=== PATIENT | male | born 1970 | race Caucasian/White ===

== ENCOUNTER 2021-12-26 07:42 | Inpatient (IN) ==
[2021-12-26 08:51] LABS: Basophils % 0.3 %; Eosinophils # 0.1 K/mcL (0.0-0.6); Eosinophils % 0.6 %; Hematocrit 44.9 % (37.5-50.1); Hemoglobin 15.3 g/dL (12.9-16.9); Immature Granulocytes % 0.4 % (0-4); Lymphocytes # 1.6 K/mcL (0.6-4.6); Mean Corpuscular HGB Conc 34.1 g/dL (31.6-35.5); Mean Corpuscular Hemoglobin 32.1 pg (28.0-33.3); Mean Corpuscular Volume 94.1 fL (83.0-100.0); Mean Platelet Volume 8.9 fL (9.4-12.4); Monocytes # 0.6 K/mcL (0.0-1.3); Monocytes % 5.1 %; Platelet Count 266 K/mcL (140-400); Red Blood Count 4.77 M/mcL (4.19-5.50); Red Cell Distribution Width 12.3 % (11.5-14.5); Segmented Neutrophils % 80.6 %; White Blood Count 12.4 K/mcL (4.3-11.1)
[2021-12-26 09:11] LABS: BUN/Creatinine Ratio 16 (6-26); Blood Urea Nitrogen 14 mg/dL (6-20); Calcium 8.9 mg/dL (8.6-10.3); Carbon Dioxide 26 mEq/L (23-29); Chloride 102 mEq/L (98-107); Glucose 117 mg/dL (70-105); Osmolality,Calculated 286 (280-300); Potassium 3.7 mEq/L (3.5-5.1); Sodium 137 mEq/L (136-145); Troponin I 0.03 ng/mL (< 0.04)
[2021-12-26] MEDS ORDERED: Ondansetron 4 MG/2 ML VIAL ONE (09:31)
[2021-12-26] MEDS ORDERED: Ondansetron 4 MG/2 ML VIAL IVP ONE (09:31)
[2021-12-26] MEDS ORDERED: 0.9 % Sodium Chloride 1,000 ML IVC ONE (09:31)
[2021-12-26] MEDS ORDERED: Iopamidol - 370 500 ML MLS IVP ONE (09:54)
[2021-12-26] MEDS ORDERED: *HR* FentaNYL (PF) 100 MCG/2 ML VIAL IVP ONE ×2 (09:59→10:33)
[2021-12-26] MEDS ORDERED: 0.9 % Sodium Chloride 500 ML IVC ONE (10:22)
[2021-12-26] MEDS ORDERED: DOBUTamine 1,000 MG/250 ML BAG ONE (11:10)
[2021-12-26] MEDS ORDERED: Heparin 1,000 UNITS/500 mL 500 ML ONE (11:12)
[2021-12-26] MEDS ORDERED: Papaverine 60 MG/2 ML VIAL IVP ONE (11:12)
[2021-12-26] MEDS ORDERED: Vancomycin 1,000 MG VIAL ONE (11:13)
[2021-12-26] MEDS ORDERED: *HR* Propofol 200 MG/20 ML VIAL IVP ONE (11:13)
[2021-12-26] MEDS ORDERED: *HR* Midazolam HCl 5 MG/5 ML VIAL IVP ONE ×2 (11:13→21:32)
[2021-12-26] MEDS ORDERED: *HR* FentaNYL (PF) 1,000 MCG/20 ML VIAL ONE (11:13)
[2021-12-26] MEDS ORDERED: CeFAZolin Syr 2,000MG/20 ML 2,000 MG/20 ML SYRINGE IVPB ONE (11:15)
[2021-12-26] MEDS ORDERED: Aspirin 81 MG TAB.CHEW PO STA (11:15)
[2021-12-26] MEDS ORDERED: niCARdipine 20 MG/200 ML MLS IVC ONE ×2 (11:15→11:17)
[2021-12-26] MEDS ORDERED: Chlorhexidine Rinse 15 ML MOUTHWASH MM STA (11:15)
[2021-12-26] MEDS ORDERED: *HR* Magnesium Sulfate 1 GM/2 ML VIAL ONE (11:16)
[2021-12-26] MEDS ORDERED: Tranexamic Acid 1,000 MG/10 ML VIAL ONE ×2 (11:19)
[2021-12-26] MEDS ORDERED: Lidocaine 2% Syringe 100 MG/5 ML IVP ONE (11:25)
[2021-12-26] MEDS ORDERED: Albumin Human 25% 25 GM/100 ML IV.SOLN IVPB ONE (11:25)
[2021-12-26] MEDS ORDERED: *HR* Heparin 10,000 UNIT/10 ML VIAL IR ONE (11:25)
[2021-12-26] MEDS ORDERED: Tranexamic Acid 1,000 MG/10 ML VIAL IR ONE (11:25)
[2021-12-26] MEDS ORDERED: Mannitol 25% vial 12.5 GM/50 ML VIAL IVPB ONE (11:25)
[2021-12-26] MEDS ORDERED: *HR* Phenylephrine 10 MG/ML VIAL IVC ONE (11:25)
[2021-12-26] MEDS ORDERED: Clindamycin 600 MG/50 ML IV.SOLN IVPB ONE (11:25)
[2021-12-26] MEDS ORDERED: *HR* Magnesium Sulfate 2 GM/50 ML PIGGYBACK IVPB ONE (11:25)
[2021-12-26] MEDS ORDERED: Heparin 1,000 UNITS/500 mL IV.SOLN IR ONE (11:25)
[2021-12-26] MEDS ORDERED: Sodium Bicarbonate 50 MEQ/50 ML VIAL IVC ONE (11:25)
[2021-12-26] MEDS ORDERED: Lidocaine 2% Syringe 100 MG/5 ML ONE (11:29)
[2021-12-26] MEDS ORDERED: Morphine Sulfate 2 MG/ML SYRINGE IVP ONE (11:33)
[2021-12-26] MEDS: niCARdipine 20 MG/200 ML MLS IVC SCH ×3 (11:43→22:18)
[2021-12-26] MEDS ORDERED: Norepinephrine 4 MG in 0.9 % Sodium Chloride 250 ML IVC PRN (12:00)
[2021-12-26] MEDS ORDERED: del Nido Cardioplegia Solution PF ONE ×2 (12:00)
[2021-12-26] MEDS ORDERED: Heparin 15,000 UNIT in 0.9 % Sodium Chloride 500 ML IR ONE (12:00)
[2021-12-26] MEDS ORDERED: Buckersberg's Blood Cardioplegia PF ONE (12:00)
[2021-12-26 12:28] LABS: ABG Base Excess -4 mEq/L (-2 to 3); ABG Chloride 105 mEq/L (98-107); ABG Glucose 145 mg/dL (60-95); ABG HCO3 24 mEq/L (21-27); ABG Ionized Calcium 1.12 mmol/L (1.15-1.35); ABG Oxygen Saturation 100 % (95-98); ABG PCO2 54 mmHg (35-45); ABG PH 7.25 pH Units (7.32-7.45); ABG PO2 200 mmHg (85-104); ABG TCO2 25 mEq/L (20-26)
[2021-12-26] MEDS ORDERED: Vancomycin 1,500 MG/265 ML IV.SOLN IVPB ONE (13:00)
[2021-12-26] MEDS ORDERED: *HR* Rocuronium Bromide 50 MG/5 ML VIAL ONE ×4 (13:24→18:18)
[2021-12-26 13:33] LABS: ABG Base Excess -3 mEq/L (-2 to 3); ABG Chloride 101 mEq/L (98-107); ABG Glucose 124 mg/dL (60-95); ABG HCO3 24 mEq/L (21-27); ABG Oxygen Saturation 99 % (95-98); ABG PCO2 48 mmHg (35-45); ABG PO2 140 mmHg (85-104); ABG TCO2 26 mEq/L (20-26)
[2021-12-26] MEDS ORDERED: HUM PROTHROMBIN CPLX IVPB ONE (13:37)
[2021-12-26] MEDS ORDERED: [UNRECOGNIZED DRUG - OTHER] IVPB ONE (13:37)
[2021-12-26] MEDS ORDERED: WATER FOR INJ IVPB ONE (13:37)
[2021-12-26] MEDS ORDERED: Naloxone 0.4 MG/ML INJ IVP PRN (13:44)
[2021-12-26] MEDS ORDERED: Insulin Regular, Human 100 UNIT/ML IV PRN (13:44)
[2021-12-26] MEDS ORDERED: Ondansetron 4 MG/2 ML VIAL IVP PRN (13:44)
[2021-12-26] MEDS ORDERED: *HR* OxyCODONE/APAP 5/325 TABLET PO PRN (13:44)
[2021-12-26] MEDS ORDERED: *HR* FentaNYL (PF) 100 MCG/2 ML VIAL IVP PRN (13:44)
[2021-12-26] MEDS ORDERED: Albuterol 2.5 MG/3 ML NEBULIZER IH PRN (13:44)
[2021-12-26] MEDS ORDERED: *HR* Dextrose 50 % in Water (Syg) 50 ML SYRINGE IVP PRN (13:44)
[2021-12-26] MEDS ORDERED: Potassium Chloride 40 MEQ/200 ML BAG IVPB PRN (13:44)
[2021-12-26 14:01] LABS: ABG Base Excess -4 mEq/L (-2 to 3); ABG Chloride 102 mEq/L (98-107); ABG Glucose 149 mg/dL (60-95); ABG HCO3 23 mEq/L (21-27); ABG Ionized Calcium 0.99 mmol/L (1.15-1.35); ABG Oxygen Saturation 100 % (95-98); ABG PCO2 49 mmHg (35-45); ABG PH 7.28 pH Units (7.32-7.45); ABG PO2 220 mmHg (85-104); ABG TCO2 25 mEq/L (20-26)
[2021-12-26 15:06] LABS: ABG Base Excess -3 mEq/L (-2 to 3); ABG Chloride 103 mEq/L (98-107); ABG Glucose 180 mg/dL (60-95); ABG HCO3 21 mEq/L (21-27); ABG Ionized Calcium 0.94 mmol/L (1.15-1.35); ABG Oxygen Saturation 100 % (95-98); ABG PCO2 35 mmHg (35-45); ABG PH 7.39 pH Units (7.32-7.45); ABG PO2 191 mmHg (85-104); ABG TCO2 22 mEq/L (20-26)
[2021-12-26] MEDS ORDERED: Dexmedetomidine HCl 400 MCG/100 ML MLS IVC ONE (15:12)
[2021-12-26 15:38] LABS: ABG Base Excess -5 mEq/L (-2 to 3); ABG Chloride 104 mEq/L (98-107); ABG Glucose 210 mg/dL (60-95); ABG HCO3 20 mEq/L (21-27); ABG Ionized Calcium 0.96 mmol/L (1.15-1.35); ABG Oxygen Saturation 100 % (95-98); ABG PCO2 35 mmHg (35-45); ABG PH 7.37 pH Units (7.32-7.45); ABG PO2 198 mmHg (85-104); ABG TCO2 21 mEq/L (20-26)
[2021-12-26] MEDS ORDERED: ceFAZolin 1,000 MG in 0.9 % Sodium Chloride 10 ML IVP ONE (15:51)
[2021-12-26] MEDS ORDERED: Protamine Sulfate 250 MG/25 ML VIAL IVP ONE (16:10)
[2021-12-26] MEDS ORDERED: Protamine Sulfate 50 MG/5 ML VIAL IVP ONE ×2 (16:10→17:45)
[2021-12-26] MEDS ORDERED: Calcium Gluconate 1,000 MG/10 ML VIAL ONE (16:10)
[2021-12-26 16:17] LABS: ABG Base Excess -4 mEq/L (-2 to 3); ABG Chloride 104 mEq/L (98-107); ABG Glucose 220 mg/dL (60-95); ABG HCO3 20 mEq/L (21-27); ABG Ionized Calcium 0.91 mmol/L (1.15-1.35); ABG Oxygen Saturation 99 % (95-98); ABG PCO2 31 mmHg (35-45); ABG PH 7.42 pH Units (7.32-7.45); ABG PO2 121 mmHg (85-104); ABG TCO2 21 mEq/L (20-26)
[2021-12-26] MEDS ORDERED: Furosemide 40 MG/4 ML VIAL ONE (16:27)
[2021-12-26] MEDS ORDERED: *HR* Amiodarone 150 MG/3 ML VIAL IVPB ONE (16:46)
[2021-12-26] MEDS: Ipratropium/Albuterol Neb 3 ML IH SCH ×2 (16:52→19:41)
[2021-12-26 17:01] LABS: ABG Base Excess -6 mEq/L (-2 to 3); ABG Chloride 101 mEq/L (98-107); ABG Glucose 200 mg/dL (60-95); ABG HCO3 20 mEq/L (21-27); ABG Ionized Calcium 0.81 mmol/L (1.15-1.35); ABG Oxygen Saturation 100 % (95-98); ABG PCO2 40 mmHg (35-45); ABG PO2 291 mmHg (85-104); ABG TCO2 21 mEq/L (20-26)
[2021-12-26] MEDS ORDERED: Sodium Bicarbonate 50 MEQ/50 ML VIAL ONE (17:48)
[2021-12-26 17:50] LABS: ABG Base Excess -7 mEq/L (-2 to 3); ABG Chloride 103 mEq/L (98-107); ABG Glucose 249 mg/dL (60-95); ABG HCO3 21 mEq/L (21-27); ABG Ionized Calcium 0.75 mmol/L (1.15-1.35); ABG Oxygen Saturation 95 % (95-98); ABG PCO2 55 mmHg (35-45); ABG PH 7.19 pH Units (7.32-7.45); ABG PO2 91 mmHg (85-104); ABG TCO2 23 mEq/L (20-26)
[2021-12-26 18:11] LABS: ABG Base Excess -2 mEq/L (-2 to 3); ABG Chloride 102 mEq/L (98-107); ABG Glucose 214 mg/dL (60-95); ABG HCO3 25 mEq/L (21-27); ABG Ionized Calcium 0.76 mmol/L (1.15-1.35); ABG Oxygen Saturation 97 % (95-98); ABG PCO2 50 mmHg (35-45); ABG PO2 97 mmHg (85-104); ABG TCO2 26 mEq/L (20-26)
[2021-12-26] MEDS ORDERED: Albumin Human 5% 0 GM/0 ML IV.SOLN ONE (18:27)
[2021-12-26] MEDS ORDERED: [UNRECOGNIZED DRUG - OTHER] IVP ONE (18:30)
[2021-12-26 19:50] LABS: ABG Base Excess 3 mEq/L (-2 to 3); ABG HCO3 31 mEq/L (21-27); ABG Oxygen Saturation 91 % (95-98); ABG PCO2 68 mmHg (35-45); ABG PH 7.27 pH Units (7.32-7.45); ABG PO2 73 mmHg (85-104); ABG TCO2 34 mEq/L (20-26); Blood Gas Modality AF; Blood Gas VT 500 cc
[2021-12-26] MEDS: DOBUTamine 1,000 MG/250 ML BAG IVC SCH (19:59)
[2021-12-26 20:01] LABS: Platelet Count 114 K/mcL (140-400)
[2021-12-26 20:03] LABS: Basophils # 0.1 K/mcL (0.0-0.2); Basophils % 0.3 %; Hematocrit 36.8 % (37.5-50.1); Hemoglobin 12.1 g/dL (12.9-16.9); Immature Granulocytes % 1.5 % (0-4); Lymphocytes # 1.5 K/mcL (0.6-4.6); Lymphocytes % 5.5 %; Mean Corpuscular HGB Conc 32.9 g/dL (31.6-35.5); Mean Corpuscular Hemoglobin 31.3 pg (28.0-33.3); Mean Corpuscular Volume 95.3 fL (83.0-100.0); Mean Platelet Volume 8.5 fL (9.4-12.4); Monocytes # 1.1 K/mcL (0.0-1.3); Neutrophils # 24.4 K/mcL (1.6-8.9); Red Blood Count 3.86 M/mcL (4.19-5.50); Red Cell Distribution Width 13.4 % (11.5-14.5); Segmented Neutrophils % 88.7 %; White Blood Count 27.5 K/mcL (4.3-11.1)
[2021-12-26 20:08] LABS: INR 0.7
[2021-12-26 20:11] LABS: Activated Partial Thrombo Time 37.7 Seconds (26.0-36.0)
[2021-12-26] MEDS: CeFAZolin 2 GM/120 ML BAG IVPB SCH (20:21)
[2021-12-26] MEDS: EPINEPHrine 5 MG in D5% in Water 250 ML IVC SCH (20:22)
[2021-12-26 20:23] LABS: Platelet Estimate Slight Decrease (Normal)
[2021-12-26] MEDS: Norepinephrine 4 MG/254 ML IV.SOLN IVC SCH ×3 (20:23→22:48)
[2021-12-26] MEDS ORDERED: *HR* Midazolam HCl 2 MG/2 ML VIAL IVP ONE (20:24)
[2021-12-26 20:27] LABS: BUN/Creatinine Ratio 20 (6-26); Blood Urea Nitrogen 18 mg/dL (6-20); Calcium 7.6 mg/dL (8.6-10.3); Carbon Dioxide 29 mEq/L (23-29); Chloride 104 mEq/L (98-107); Chol/HDL Ratio 3.7 (0-4.9); Cholesterol 127 mg/dL (< 200); Estimated Average Glucose 117 mg/dl; Glucose 202 mg/dL (70-105); HDL Cholesterol 34 mg/dL (40-59); Hemoglobin A1C 5.7 %; LDL Cholesterol,Calculated 69 mg/dL (< 100); Magnesium 2.7 mg/dL (1.6-2.6); Osmolality,Calculated 310 (280-300); Potassium 3.7 mEq/L (3.5-5.1); Sodium 146 mEq/L (136-145); Triglycerides 122 mg/dL (< 150)
[2021-12-26] MEDS: FentaNYL (PF) 1,000 MCG/100 ML IV.SOLN IVC SCH (21:12)
[2021-12-26] MEDS: Calcium Gluconate 1gm/50mL 1 GM/50 ML BAG IVPB PRN (21:19)
[2021-12-26 21:20] LABS: ABG Base Excess -1 mEq/L (-2 to 3); ABG HCO3 28 mEq/L (21-27); ABG Oxygen Saturation 88 % (95-98); ABG PCO2 68 mmHg (35-45); ABG PH 7.22 pH Units (7.32-7.45); ABG PO2 67 mmHg (85-104); ABG TCO2 30 mEq/L (20-26); Blood Gas VT 500 cc
[2021-12-26] MEDS: Pantoprazole 40 MG VIAL IVP SCH (21:38)
[2021-12-26] MEDS: Chlorhexidine Rinse 15 ML MOUTHWASH MM SCH (21:38)
[2021-12-26] MEDS ORDERED: Norepinephrine 32 MG/250 ML IV.SOLN IVC SCH (22:15)
[2021-12-26] MEDS ORDERED: Norepinephrine 4 MG/254 ML IV.SOLN IVC ONE (22:48)
[2021-12-26] MEDS: Norepinephrine 32 MG/250 ML IV.SOLN IVC SCH (23:40)
[2021-12-27] MEDS ORDERED: Norepinephrine 4 MG/254 ML IV.SOLN IVC ONE (00:03)
[2021-12-27] MEDS: Ipratropium/Albuterol Neb 3 ML IH SCH ×7 (00:05→23:20)
[2021-12-27] MEDS: Norepinephrine 4 MG/254 ML IV.SOLN IVC SCH (00:20)
[2021-12-27 00:24] LABS: ABG Base Excess 1 mEq/L (-2 to 3); ABG HCO3 27 mEq/L (21-27); ABG Oxygen Saturation 90 % (95-98); ABG PCO2 54 mmHg (35-45); ABG PH 7.32 pH Units (7.32-7.45); ABG PO2 64 mmHg (85-104); ABG TCO2 29 mEq/L (20-26); Blood Gas Modality AF; Blood Gas VT 550 cc
[2021-12-27] MEDS: Albumin Human 5% 12.5 GM/250 ML IV.SOLN IVPB PRN ×2 (00:40→00:41)
[2021-12-27] MEDS ORDERED: *HR* Midazolam HCl 2 MG/2 ML VIAL IVP PRN (03:10)
[2021-12-27] MEDS ORDERED: Dexmedetomidine HCl 400 MCG/100 ML MLS IVC ONE (03:10)
[2021-12-27] MEDS: FentaNYL (PF) 1,000 MCG/100 ML IV.SOLN IVC SCH ×5 (03:18→23:36)
[2021-12-27] MEDS: Dexmedetomidine HCl 400 MCG/100 ML MLS IVC SCH ×4 (03:30→19:14)
[2021-12-27 03:38] LABS: Activated Partial Thrombo Time 28.9 Seconds (26.0-36.0)
[2021-12-27 04:03] LABS: INR 1.1; Prothrombin Time 12.1 Seconds (9.4-12.1)
[2021-12-27 04:12] LABS: BUN/Creatinine Ratio 23 (6-26); Blood Urea Nitrogen 21 mg/dL (6-20); Calcium 7.8 mg/dL (8.6-10.3); Carbon Dioxide 30 mEq/L (23-29); Chloride 107 mEq/L (98-107); Glucose 136 mg/dL (70-105); Magnesium 2.4 mg/dL (1.6-2.6); Osmolality,Calculated 305 (280-300); Potassium 3.8 mEq/L (3.5-5.1); Sodium 145 mEq/L (136-145)
[2021-12-27 04:12] LABS: ABG Base Excess 7 mEq/L (-2 to 3); ABG HCO3 32 mEq/L (21-27); ABG Oxygen Saturation 94 % (95-98); ABG PCO2 47 mmHg (35-45); ABG PH 7.44 pH Units (7.32-7.45); ABG PO2 69 mmHg (85-104); ABG TCO2 33 mEq/L (20-26); Blood Gas Modality AF; Blood Gas VT 550 cc
[2021-12-27 04:16] LABS: Amphetamine Screen,Urine Negative ng/mL (Cutoff=1000); Barbiturate Screen,Urine Negative ng/mL (Cutoff=200); Benzodiazepines Screen,Urine Positive ng/mL (Cutoff=200); Cannabinoid Screen,Urine Positive ng/mL (Cutoff = 50); Cocaine Screen,Urine Negative ng/mL (Cutoff= 300); Opiate Screen,Urine Positive ng/mL (Cutoff=300); Phencyclidine Screen,Urine Negative ng/mL (Cutoff=25)
[2021-12-27] MEDS: Calcium Gluconate 1gm/50mL 1 GM/50 ML BAG IVPB PRN ×2 (04:35→20:30)
[2021-12-27] MEDS: CeFAZolin 2 GM/120 ML BAG IVPB SCH ×3 (04:52→20:30)
[2021-12-27 05:02] LABS: Basophils % 0.1 %; Hemoglobin 9.1 g/dL (12.9-16.9); Immature Granulocytes % 0.5 % (0-4); Lymphocytes # 0.9 K/mcL (0.6-4.6); Lymphocytes % 5.5 %; Mean Corpuscular HGB Conc 33.7 g/dL (31.6-35.5); Mean Corpuscular Hemoglobin 31.3 pg (28.0-33.3); Mean Corpuscular Volume 92.8 fL (83.0-100.0); Mean Platelet Volume 9.5 fL (9.4-12.4); Monocytes # 1.3 K/mcL (0.0-1.3); Monocytes % 7.4 %; Neutrophils # 14.7 K/mcL (1.6-8.9); Platelet Count 122 K/mcL (140-400); Red Blood Count 2.91 M/mcL (4.19-5.50); Red Cell Distribution Width 13.9 % (11.5-14.5); Segmented Neutrophils % 86.5 %; White Blood Count 16.9 K/mcL (4.3-11.1)
[2021-12-27] MEDS: niCARdipine 20 MG/200 ML MLS IVC SCH ×6 (05:18→20:30)
[2021-12-27] MEDS ORDERED: *HR* Enoxaparin 30 MG/0.3 ML SYRINGE SQ SCH (06:00)
[2021-12-27 07:52] LABS: ABG Base Excess 5 mEq/L (-2 to 3); ABG HCO3 30 mEq/L (21-27); ABG Oxygen Saturation 95 % (95-98); ABG PCO2 45 mmHg (35-45); ABG PH 7.43 pH Units (7.32-7.45); ABG PO2 73 mmHg (85-104); ABG TCO2 31 mEq/L (20-26); Blood Gas Modality ASSIST CONTROL; Blood Gas VT 480 cc
[2021-12-27] MEDS: Pantoprazole 40 MG VIAL IVP SCH (07:56)
[2021-12-27] MEDS: Chlorhexidine Rinse 15 ML MOUTHWASH MM SCH ×2 (07:58→20:30)
[2021-12-27] MEDS: Aspirin Enteric Coated 81 MG Tablet PO SCH (07:59)
[2021-12-27] MEDS ORDERED: acetaZOLAMIDE 500 MG in Water for inj. (sterile) 5 ML IVP ONE ×2 (08:00→08:15)
[2021-12-27] MEDS: Furosemide 40 MG/4 ML VIAL IVP SCH ×3 (08:43→23:36)
[2021-12-27] MEDS: Potassium Chloride Elixir 20 MEQ/15 ML UDC GTUBE SCH ×3 (08:43→23:35)
[2021-12-27 09:30] LABS: ABG Base Excess 8 mEq/L (-2 to 3); ABG HCO3 33 mEq/L (21-27); ABG Oxygen Saturation 94 % (95-98); ABG PCO2 50 mmHg (35-45); ABG PH 7.42 pH Units (7.32-7.45); ABG PO2 70 mmHg (85-104); ABG TCO2 34 mEq/L (20-26); Blood Gas Modality ASSIST CONTROL; Blood Gas VT 550 cc
[2021-12-27] MEDS: Docusate Oral Soln 100 MG/10 ML UDC GTUBE SCH ×2 (10:20→20:30)
[2021-12-27] MEDS: EPINEPHrine 5 MG in D5% in Water 250 ML IVC SCH (11:38)
[2021-12-27] MEDS ORDERED: Protamine Sulfate 50 MG/5 ML VIAL IVP ONE (11:49)
[2021-12-27] MEDS ORDERED: Calcium Gluconate 1,000 MG/10 ML VIAL ONE (11:49)
[2021-12-27] MEDS ORDERED: Protamine Sulfate 250 MG/25 ML VIAL IVP ONE (11:49)
[2021-12-27] MEDS ORDERED: Albumin Human 5% 12.5 GM/250 ML IV.SOLN ONE (12:02)
[2021-12-27] MEDS: Norepinephrine 32 MG/250 ML IV.SOLN IVC SCH (13:26)
[2021-12-27] MEDS: DOBUTamine 1,000 MG/250 ML BAG IVC SCH (13:47)
[2021-12-27] MEDS ORDERED: Artificial Tears SOLN 15 ML BOTTLE BOTH EYES ONE (16:14)
[2021-12-27] MEDS ORDERED: Artificial Tears SOLN 15 ML BOTTLE BOTH EYES PRN (16:14)
[2021-12-27] MEDS ORDERED: Aspirin 81 MG TAB.CHEW PO ONE (18:00)
[2021-12-27 19:08] LABS: BUN/Creatinine Ratio 22 (6-26); Blood Urea Nitrogen 15 mg/dL (6-20); Calcium 7.6 mg/dL (8.6-10.3); Carbon Dioxide 34 mEq/L (23-29); Chloride 104 mEq/L (98-107); Glucose 140 mg/dL (70-105); Osmolality,Calculated 297 (280-300); Potassium 3.8 mEq/L (3.5-5.1); Sodium 142 mEq/L (136-145)
[2021-12-27] MEDS ORDERED: D5% in Water 1,000 ML IVC PRN (19:57)
[2021-12-27] MEDS ORDERED: Dextrose Gel 15 GM/37.5 ML TUBE PO PRN ×2 (19:57)
[2021-12-27] MEDS ORDERED: *HR* Dextrose 50 % in Water (Syg) 50 ML SYRINGE IVP PRN (19:57)
[2021-12-27] MEDS: Insulin LISPRO 300 UNITS/3 ML VIAL SUBQ SCH (20:05)
[2021-12-27] MEDS ORDERED: 0.9 % Sodium Chloride 500 ML ONE (23:54)
[2021-12-28] MEDS: Insulin LISPRO 300 UNITS/3 ML VIAL SUBQ SCH ×6 (00:04→20:05)
[2021-12-28] MEDS: Acetaminophen 325 MG TABLET PO PRN ×2 (00:04→20:05)
[2021-12-28] MEDS: Dexmedetomidine HCl 400 MCG/100 ML MLS IVC SCH ×7 (01:00→22:19)
[2021-12-28] MEDS: DOBUTamine 1,000 MG/250 ML BAG IVC SCH (02:04)
[2021-12-28] MEDS: Ipratropium/Albuterol Neb 3 ML IH SCH ×5 (03:20→20:01)
[2021-12-28 03:56] LABS: ABG Base Excess 7 mEq/L (-2 to 3); ABG HCO3 32 mEq/L (21-27); ABG Oxygen Saturation 93 % (95-98); ABG PCO2 43 mmHg (35-45); ABG PH 7.48 pH Units (7.32-7.45); ABG PO2 62 mmHg (85-104); ABG TCO2 33 mEq/L (20-26); Blood Gas Modality AF; Blood Gas VT 550 cc
[2021-12-28 04:00] LABS: Basophils % 0.2 %; Eosinophils # 0.2 K/mcL (0.0-0.6); Eosinophils % 0.8 %; Hematocrit 27.3 % (37.5-50.1); Immature Granulocytes % 0.6 % (0-4); Lymphocytes # 2.3 K/mcL (0.6-4.6); Lymphocytes % 11.4 %; Mean Corpuscular Hemoglobin 31.6 pg (28.0-33.3); Mean Corpuscular Volume 95.8 fL (83.0-100.0); Mean Platelet Volume 10.1 fL (9.4-12.4); Monocytes # 1.2 K/mcL (0.0-1.3); Platelet Count 113 K/mcL (140-400); Red Blood Count 2.85 M/mcL (4.19-5.50); White Blood Count 19.8 K/mcL (4.3-11.1)
[2021-12-28 04:22] LABS: BUN/Creatinine Ratio 21 (6-26); Blood Urea Nitrogen 15 mg/dL (6-20); Calcium 7.9 mg/dL (8.6-10.3); Carbon Dioxide 34 mEq/L (23-29); Chloride 103 mEq/L (98-107); Glucose 147 mg/dL (70-105); Magnesium 2.2 mg/dL (1.6-2.6); Osmolality,Calculated 294 (280-300); Potassium 4.2 mEq/L (3.5-5.1); Sodium 140 mEq/L (136-145)
[2021-12-28] MEDS: CeFAZolin 2 GM/120 ML BAG IVPB SCH ×2 (04:24→12:49)
[2021-12-28] MEDS: niCARdipine 20 MG/200 ML MLS IVC SCH ×3 (04:41→20:05)
[2021-12-28] MEDS: FentaNYL (PF) 1,000 MCG/100 ML IV.SOLN IVC SCH ×4 (05:23→21:30)
[2021-12-28] MEDS: *HR* Enoxaparin 40 MG/0.4 ML SYRINGE SQ SCH (05:24)
[2021-12-28] MEDS: Pantoprazole 40 MG VIAL IVP SCH (07:48)
[2021-12-28] MEDS: Docusate Oral Soln 100 MG/10 ML UDC GTUBE SCH ×2 (07:48→20:04)
[2021-12-28] MEDS: Aspirin Enteric Coated 81 MG Tablet PO SCH (07:48)
[2021-12-28] MEDS: Chlorhexidine Rinse 15 ML MOUTHWASH MM SCH ×2 (07:48→20:04)
[2021-12-28] MEDS ORDERED: Bumetanide 1 MG/4 ML VIAL IVP ONE (09:41)
[2021-12-28] MEDS: Piperacillin/Tazobactam 3.375 GM in 0.9 % Sodium Chloride Mini Bag 100 ML IVPB SCH ×2 (09:57→17:59)
[2021-12-28] MEDS ORDERED: Vancomycin 1,750 MG in 0.9 % Sodium Chloride 250 ML IVPB SCH (10:00)
[2021-12-28 10:10] LABS: Bacteria,Urine Few per hpf (None-Few); Bilirubin,Urine Negative (Negative); Blood,Urine Small (Negative); Clarity,Urine Clear (Clear); Color,Urine Light-Yellow (Yellow); Glucose,Urine (UA) Normal (Normal); Ketones,Urine Negative (Negative); Leukocyte Esterase,Urine Negative (Negative); Mucus,Urine Few per lpf (None-Few); Nitrite,Urine Negative (Negative); PH,Urine 7.5 pH Units (5.0-8.0); Protein,Urine 50 mg/dL (Neg-Trace); Specific Gravity,Urine 1.024 (1.010-1.025); Urobilinogen,Urine Normal (Normal)
[2021-12-28] MEDS: Norepinephrine 32 MG/250 ML IV.SOLN IVC SCH (13:26)
[2021-12-28] MEDS: Vancomycin 1,750 MG/517.5 ML IV.SOLN IVPB SCH (13:31)
[2021-12-28] MEDS: EPINEPHrine 5 MG in D5% in Water 250 ML IVC SCH (20:06)
[2021-12-29] MEDS: Piperacillin/Tazobactam 3.375 GM in 0.9 % Sodium Chloride Mini Bag 100 ML IVPB SCH ×4 (00:45→23:36)
[2021-12-29] MEDS: Insulin LISPRO 300 UNITS/3 ML VIAL SUBQ SCH ×6 (00:45→19:56)
[2021-12-29] MEDS: Vancomycin 1,750 MG/517.5 ML IV.SOLN IVPB SCH ×2 (00:47→12:37)
[2021-12-29] MEDS: Dexmedetomidine HCl 400 MCG/100 ML MLS IVC SCH ×4 (01:54→12:23)
[2021-12-29] MEDS: FentaNYL (PF) 1,000 MCG/100 ML IV.SOLN IVC SCH ×2 (02:34→07:37)
[2021-12-29] MEDS: Ipratropium/Albuterol Neb 3 ML IH SCH ×7 (03:31→23:01)
[2021-12-29 04:03] LABS: ABG Base Excess 5 mEq/L (-2 to 3); ABG HCO3 30 mEq/L (21-27); ABG Oxygen Saturation 94 % (95-98); ABG PCO2 48 mmHg (35-45); ABG PH 7.41 pH Units (7.32-7.45); ABG PO2 69 mmHg (85-104); ABG TCO2 32 mEq/L (20-26); Blood Gas Modality AF; Blood Gas VT 550 cc
[2021-12-29 04:13] LABS: Basophils # 0.1 K/mcL (0.0-0.2); Basophils % 0.3 %; Eosinophils % 0.1 %; Hematocrit 25.3 % (37.5-50.1); Hemoglobin 8.4 g/dL (12.9-16.9); Immature Granulocytes % 1.1 % (0-4); Lymphocytes # 2.3 K/mcL (0.6-4.6); Lymphocytes % 13.1 %; Mean Corpuscular HGB Conc 33.2 g/dL (31.6-35.5); Mean Corpuscular Hemoglobin 31.9 pg (28.0-33.3); Mean Corpuscular Volume 96.2 fL (83.0-100.0); Mean Platelet Volume 9.6 fL (9.4-12.4); Monocytes # 0.8 K/mcL (0.0-1.3); Monocytes % 4.7 %; Neutrophils # 14.2 K/mcL (1.6-8.9); Platelet Count 106 K/mcL (140-400); Red Blood Count 2.63 M/mcL (4.19-5.50); Red Cell Distribution Width 13.7 % (11.5-14.5); Segmented Neutrophils % 80.7 %; White Blood Count 17.6 K/mcL (4.3-11.1)
[2021-12-29 04:27] LABS: BUN/Creatinine Ratio 24 (6-26); Blood Urea Nitrogen 14 mg/dL (6-20); Calcium 7.6 mg/dL (8.6-10.3); Carbon Dioxide 30 mEq/L (23-29); Chloride 102 mEq/L (98-107); Glucose 137 mg/dL (70-105); Magnesium 2.1 mg/dL (1.6-2.6); Osmolality,Calculated 283 (280-300); Potassium 3.8 mEq/L (3.5-5.1); Sodium 135 mEq/L (136-145)
[2021-12-29] MEDS: Acetaminophen 325 MG TABLET PO PRN ×2 (04:50→20:02)
[2021-12-29] MEDS: *HR* Enoxaparin 40 MG/0.4 ML SYRINGE SQ SCH (05:00)
[2021-12-29] MEDS: niCARdipine 20 MG/200 ML MLS IVC SCH ×6 (07:35→16:23)
[2021-12-29] MEDS: Pantoprazole 40 MG VIAL IVP SCH (07:36)
[2021-12-29] MEDS: DOBUTamine 1,000 MG/250 ML BAG IVC SCH (07:36)
[2021-12-29] MEDS: Docusate Oral Soln 100 MG/10 ML UDC GTUBE SCH ×2 (07:37→19:54)
[2021-12-29] MEDS: Chlorhexidine Rinse 15 ML MOUTHWASH MM SCH ×2 (07:37→20:03)
[2021-12-29] MEDS: Aspirin Enteric Coated 81 MG Tablet PO SCH (07:44)
[2021-12-29] MEDS: EPINEPHrine 5 MG in D5% in Water 250 ML IVC SCH (10:24)
[2021-12-29] MEDS ORDERED: *HR* OxyCODONE/APAP 5/325 TABLET PO ONE (21:09)
[2021-12-30] MEDS: Norepinephrine 32 MG/250 ML IV.SOLN IVC SCH ×2 (00:16→22:52)
[2021-12-30] MEDS: Insulin LISPRO 300 UNITS/3 ML VIAL SUBQ SCH ×6 (00:17→21:07)
[2021-12-30] MEDS: *HR* OxyCODONE/APAP 5/325 TABLET PO PRN ×5 (01:07→21:17)
[2021-12-30] MEDS: Morphine Sulfate 2 MG/ML SYRINGE IVP PRN ×2 (01:54→07:33)
[2021-12-30] MEDS ORDERED: Vancomycin 1,500 MG/265 ML IV.SOLN IVPB SCH (02:00)
[2021-12-30 03:25] LABS: Basophils % 0.1 %; Hematocrit 23.3 % (37.5-50.1); Hemoglobin 7.6 g/dL (12.9-16.9); Immature Granulocytes % 0.9 % (0-4); Lymphocytes % 6.4 %; Mean Corpuscular HGB Conc 32.6 g/dL (31.6-35.5); Mean Corpuscular Hemoglobin 31.5 pg (28.0-33.3); Mean Corpuscular Volume 96.7 fL (83.0-100.0); Mean Platelet Volume 9.8 fL (9.4-12.4); Monocytes # 1.1 K/mcL (0.0-1.3); Monocytes % 6.7 %; Neutrophils # 13.9 K/mcL (1.6-8.9); Nucleated Red Blood Cells 0.2 /100 WBC (0); Platelet Count 139 K/mcL (140-400); Red Blood Count 2.41 M/mcL (4.19-5.50); Red Cell Distribution Width 13.5 % (11.5-14.5); Segmented Neutrophils % 85.9 %; White Blood Count 16.2 K/mcL (4.3-11.1)
[2021-12-30] MEDS: Ipratropium/Albuterol Neb 3 ML IH SCH ×6 (03:50→23:25)
[2021-12-30 03:51] LABS: BUN/Creatinine Ratio 36 (6-26); Blood Urea Nitrogen 20 mg/dL (6-20); Calcium 7.5 mg/dL (8.6-10.3); Carbon Dioxide 29 mEq/L (23-29); Chloride 105 mEq/L (98-107); Glucose 118 mg/dL (70-105); Magnesium 2.1 mg/dL (1.6-2.6); Osmolality,Calculated 296 (280-300); Potassium 3.1 mEq/L (3.5-5.1); Sodium 141 mEq/L (136-145)
[2021-12-30] MEDS: Vancomycin 1,750 MG/517.5 ML IV.SOLN IVPB SCH (05:12)
[2021-12-30] MEDS: *HR* Enoxaparin 40 MG/0.4 ML SYRINGE SQ SCH (05:12)
[2021-12-30] MEDS: Chlorhexidine Rinse 15 ML MOUTHWASH MM SCH (07:33)
[2021-12-30] MEDS: Docusate Oral Soln 100 MG/10 ML UDC GTUBE SCH (07:33)
[2021-12-30] MEDS: Aspirin Enteric Coated 81 MG Tablet PO SCH (07:33)
[2021-12-30] MEDS: Pantoprazole 40 MG VIAL IVP SCH (07:33)
[2021-12-30] MEDS: Piperacillin/Tazobactam 3.375 GM in 0.9 % Sodium Chloride Mini Bag 100 ML IVPB SCH ×2 (07:34→15:42)
[2021-12-30] MEDS ORDERED: Dextrose Gel 15 GM/37.5 ML TUBE PO PRN ×2 (08:21)
[2021-12-30] MEDS ORDERED: *HR* Dextrose 50 % in Water (Syg) 50 ML SYRINGE IVP PRN (08:21)
[2021-12-30] MEDS ORDERED: D5% in Water 1,000 ML IVC PRN (08:21)
[2021-12-30] MEDS: Bumetanide 1 MG/4 ML VIAL IVP SCH ×2 (10:44→16:22)
[2021-12-30] MEDS: 3% Sodium Chloride Inhalation 4 ML VIAL.NEB IH SCH ×3 (11:28→19:54)
[2021-12-30] MEDS: amLODIPine 5 MG TABLET PO SCH (14:45)
[2021-12-30] MEDS: Finasteride 5 MG TABLET PO SCH (16:21)
[2021-12-30 19:34] LABS: Amphetamines NEGATIVE ng/mL (Cutoff 20); Barbiturates NEGATIVE ng/mL (Cutoff 50); Buprenorphine NEGATIVE ng/mL (Cutoff 1); Cocaine NEGATIVE ng/mL (Cutoff 20); Methadone NEGATIVE ng/mL (Cutoff 25); Methamphetamines NEGATIVE ng/mL (Cutoff 20); Opiates NEGATIVE ng/mL (Cutoff 20); Phencyclidine NEGATIVE ng/mL (Cutoff 10)
[2021-12-30] MEDS ORDERED: Melatonin 3 MG TABLET PO PRN (21:14)
[2021-12-30] MEDS: Docusate Oral Soln 100 MG/10 ML UDC PO SCH (21:19)
[2021-12-30] MEDS: Melatonin 3 MG TABLET PO PRN (21:37)
[2021-12-31] MEDS: Piperacillin/Tazobactam 3.375 GM in 0.9 % Sodium Chloride Mini Bag 100 ML IVPB SCH ×4 (00:33→23:44)
[2021-12-31] MEDS: 3% Sodium Chloride Inhalation 4 ML VIAL.NEB IH SCH ×4 (03:41→20:42)
[2021-12-31] MEDS: Ipratropium/Albuterol Neb 3 ML IH SCH ×6 (03:41→23:46)
[2021-12-31 04:53] LABS: Basophils % 0.1 %; Hematocrit 22.3 % (37.5-50.1); Hemoglobin 7.2 g/dL (12.9-16.9); Immature Granulocytes % 0.9 % (0-4); Lymphocytes # 1.1 K/mcL (0.6-4.6); Lymphocytes % 7.3 %; Mean Corpuscular HGB Conc 32.3 g/dL (31.6-35.5); Mean Corpuscular Volume 96.1 fL (83.0-100.0); Mean Platelet Volume 9.6 fL (9.4-12.4); Monocytes # 1.1 K/mcL (0.0-1.3); Monocytes % 6.9 %; Neutrophils # 13.2 K/mcL (1.6-8.9); Nucleated Red Blood Cells 0.4 /100 WBC (0); Platelet Count 162 K/mcL (140-400); Red Blood Count 2.32 M/mcL (4.19-5.50); Red Cell Distribution Width 13.5 % (11.5-14.5); Segmented Neutrophils % 84.8 %; White Blood Count 15.6 K/mcL (4.3-11.1)
[2021-12-31] MEDS: *HR* Enoxaparin 40 MG/0.4 ML SYRINGE SQ SCH (05:09)
[2021-12-31] MEDS: *HR* OxyCODONE/APAP 5/325 TABLET PO PRN ×3 (05:12→18:16)
[2021-12-31 05:20] LABS: BUN/Creatinine Ratio 50 (6-26); Blood Urea Nitrogen 26 mg/dL (6-20); Carbon Dioxide 30 mEq/L (23-29); Chloride 105 mEq/L (98-107); Glucose 107 mg/dL (70-105); Magnesium 2.2 mg/dL (1.6-2.6); Osmolality,Calculated 301 (280-300); Potassium 3.2 mEq/L (3.5-5.1); Sodium 143 mEq/L (136-145)
[2021-12-31] MEDS: Docusate Oral Soln 100 MG/10 ML UDC PO SCH ×2 (08:02→19:54)
[2021-12-31] MEDS: amLODIPine 5 MG TABLET PO SCH (08:03)
[2021-12-31] MEDS: Aspirin Enteric Coated 81 MG Tablet PO SCH (08:03)
[2021-12-31] MEDS: Bumetanide 1 MG/4 ML VIAL IVP SCH ×2 (08:03→15:39)
[2021-12-31] MEDS: Finasteride 5 MG TABLET PO SCH (08:03)
[2021-12-31] MEDS: Insulin LISPRO 300 UNITS/3 ML VIAL SUBQ SCH ×4 (09:54→19:36)
[2021-12-31 10:29] LABS: Benzodiazepines POSITIVE ng/mL (Cutoff 50)
[2021-12-31 15:55] LABS: VBG Ionized Calcium 1.06 mmol/L (1.15-1.35)
[2021-12-31 17:31] LABS: BUN/Creatinine Ratio 49 (6-26); Blood Urea Nitrogen 25 mg/dL (6-20); Carbon Dioxide 31 mEq/L (23-29); Chloride 104 mEq/L (98-107); Glucose 97 mg/dL (70-105); Magnesium 2.2 mg/dL (1.6-2.6); Osmolality,Calculated 296 (280-300); Potassium 3.4 mEq/L (3.5-5.1); Sodium 141 mEq/L (136-145)
[2021-12-31] MEDS ORDERED: 0.9 % Sodium Chloride 1,000 ML ONE (17:55)
[2021-12-31] MEDS: Melatonin 3 MG TABLET PO PRN (19:55)
[2021-12-31] MEDS: Morphine Sulfate 2 MG/ML SYRINGE IVP PRN (22:00)
[2022-01-01] MEDS: *HR* OxyCODONE/APAP 5/325 TABLET PO PRN ×5 (01:11→20:38)
[2022-01-01] MEDS: 3% Sodium Chloride Inhalation 4 ML VIAL.NEB IH SCH ×4 (04:39→20:05)
[2022-01-01] MEDS: Ipratropium/Albuterol Neb 3 ML IH SCH ×6 (04:39→22:40)
[2022-01-01 05:22] LABS: Basophils % 0.2 %; Eosinophils % 0.2 %; Hematocrit 22.5 % (37.5-50.1); Hemoglobin 7.2 g/dL (12.9-16.9); Immature Granulocytes % 1.5 % (0-4); Lymphocytes # 1.8 K/mcL (0.6-4.6); Lymphocytes % 11.7 %; Mean Platelet Volume 9.7 fL (9.4-12.4); Monocytes # 1.1 K/mcL (0.0-1.3); Monocytes % 6.7 %; Neutrophils # 12.5 K/mcL (1.6-8.9); Nucleated Red Blood Cells 1.4 /100 WBC (0); Platelet Count 217 K/mcL (140-400); Red Blood Count 2.32 M/mcL (4.19-5.50); Red Cell Distribution Width 13.7 % (11.5-14.5); Segmented Neutrophils % 79.7 %; White Blood Count 15.7 K/mcL (4.3-11.1)
[2022-01-01 05:43] LABS: BUN/Creatinine Ratio 43 (6-26); Blood Urea Nitrogen 22 mg/dL (6-20); Carbon Dioxide 31 mEq/L (23-29); Chloride 102 mEq/L (98-107); Glucose 107 mg/dL (70-105); Magnesium 2.1 mg/dL (1.6-2.6); Osmolality,Calculated 292 (280-300); Potassium 3.5 mEq/L (3.5-5.1); Sodium 139 mEq/L (136-145)
[2022-01-01] MEDS: *HR* Enoxaparin 40 MG/0.4 ML SYRINGE SQ SCH (05:47)
[2022-01-01] MEDS: Piperacillin/Tazobactam 3.375 GM in 0.9 % Sodium Chloride Mini Bag 100 ML IVPB SCH (08:10)
[2022-01-01] MEDS: Bumetanide 1 MG/4 ML VIAL IVP SCH (08:10)
[2022-01-01] MEDS: Docusate Oral Soln 100 MG/10 ML UDC PO SCH ×2 (08:11→20:39)
[2022-01-01] MEDS: Finasteride 5 MG TABLET PO SCH (08:12)
[2022-01-01] MEDS: amLODIPine 5 MG TABLET PO SCH (08:12)
[2022-01-01] MEDS: Aspirin Enteric Coated 81 MG Tablet PO SCH (08:12)
[2022-01-01] MEDS: Insulin LISPRO 300 UNITS/3 ML VIAL SUBQ SCH ×4 (08:22→20:40)
[2022-01-01] MEDS ORDERED: Albuterol 2.5 MG/3 ML NEBULIZER IH PRN (10:03)
[2022-01-01] MEDS ORDERED: Naloxone 0.4 MG/ML INJ IVP PRN (10:03)
[2022-01-01] MEDS ORDERED: D5% in Water 1,000 ML IVC PRN (10:03)
[2022-01-01] MEDS ORDERED: Ondansetron 4 MG/2 ML VIAL IVP PRN (10:03)
[2022-01-01] MEDS ORDERED: *HR* Dextrose 50 % in Water (Syg) 50 ML SYRINGE IVP PRN (10:03)
[2022-01-01] MEDS ORDERED: Dextrose Gel 15 GM/37.5 ML TUBE PO PRN ×2 (10:03)
[2022-01-01] MEDS ORDERED: Acetaminophen 325 MG TABLET PO PRN (10:03)
[2022-01-01] MEDS: Morphine Sulfate 2 MG/ML SYRINGE IVP PRN ×3 (14:56→23:07)
[2022-01-01] MEDS: Furosemide 40 MG TABLET PO SCH (15:38)
[2022-01-01] MEDS ORDERED: Piperacillin/Tazobactam 3.375 GM in 0.9 % Sodium Chloride Mini Bag 100 ML IVPB SCH (16:00)
[2022-01-01] MEDS: Melatonin 3 MG TABLET PO PRN (20:39)
[2022-01-02] MEDS: *HR* OxyCODONE/APAP 5/325 TABLET PO PRN ×5 (01:48→20:28)
[2022-01-02] MEDS: Ipratropium/Albuterol Neb 3 ML IH SCH ×6 (03:02→23:40)
[2022-01-02] MEDS: 3% Sodium Chloride Inhalation 4 ML VIAL.NEB IH SCH ×4 (03:02→20:27)
[2022-01-02] MEDS: Morphine Sulfate 2 MG/ML SYRINGE IVP PRN ×5 (04:57→22:37)
[2022-01-02] MEDS: *HR* Enoxaparin 40 MG/0.4 ML SYRINGE SQ SCH (06:21)
[2022-01-02] MEDS: Insulin LISPRO 300 UNITS/3 ML VIAL SUBQ SCH ×4 (07:26→20:29)
[2022-01-02] MEDS: Docusate Oral Soln 100 MG/10 ML UDC PO SCH (07:51)
[2022-01-02] MEDS: Furosemide 40 MG TABLET PO SCH ×2 (07:53→15:57)
[2022-01-02] MEDS: Finasteride 5 MG TABLET PO SCH (07:54)
[2022-01-02] MEDS: Aspirin Enteric Coated 81 MG Tablet PO SCH (07:54)
[2022-01-02] MEDS ORDERED: amLODIPine 5 MG TABLET PO SCH (09:00)
[2022-01-02 09:04] LABS: Basophils % 0.3 %; Eosinophils # 0.1 K/mcL (0.0-0.6); Eosinophils % 1.1 %; Hematocrit 24.2 % (37.5-50.1); Hemoglobin 7.7 g/dL (12.9-16.9); Immature Granulocytes % 1.9 % (0-4); Lymphocytes # 1.7 K/mcL (0.6-4.6); Lymphocytes % 13.2 %; Mean Corpuscular HGB Conc 31.8 g/dL (31.6-35.5); Mean Corpuscular Hemoglobin 30.9 pg (28.0-33.3); Mean Corpuscular Volume 97.2 fL (83.0-100.0); Mean Platelet Volume 9.9 fL (9.4-12.4); Monocytes # 0.4 K/mcL (0.0-1.3); Monocytes % 3.2 %; Neutrophils # 10.3 K/mcL (1.6-8.9); Nucleated Red Blood Cells 1.9 /100 WBC (0); Platelet Count 266 K/mcL (140-400); Red Blood Count 2.49 M/mcL (4.19-5.50); Red Cell Distribution Width 13.6 % (11.5-14.5); Segmented Neutrophils % 80.3 %; White Blood Count 12.8 K/mcL (4.3-11.1)
[2022-01-02 09:23] LABS: BUN/Creatinine Ratio 33 (6-26); Blood Urea Nitrogen 15 mg/dL (6-20); Calcium 8.1 mg/dL (8.6-10.3); Carbon Dioxide 31 mEq/L (23-29); Chloride 101 mEq/L (98-107); Glucose 140 mg/dL (70-105); Magnesium 1.9 mg/dL (1.6-2.6); Osmolality,Calculated 285 (280-300); Potassium 3.3 mEq/L (3.5-5.1); Sodium 136 mEq/L (136-145)
[2022-01-02] MEDS: Melatonin 3 MG TABLET PO PRN (20:28)
[2022-01-03] MEDS: Ipratropium/Albuterol Neb 3 ML IH SCH ×6 (00:09→19:57)
[2022-01-03] MEDS: *HR* OxyCODONE/APAP 5/325 TABLET PO PRN ×5 (00:43→19:41)
[2022-01-03 02:52] LABS: Hematocrit 23.1 % (37.5-50.1); Hemoglobin 7.2 g/dL (12.9-16.9); Mean Corpuscular HGB Conc 31.2 g/dL (31.6-35.5); Mean Corpuscular Hemoglobin 30.4 pg (28.0-33.3); Mean Corpuscular Volume 97.5 fL (83.0-100.0); Neutrophils # 8.9 K/mcL (1.6-8.9); Platelet Count 263 K/mcL (140-400); Red Blood Count 2.37 M/mcL (4.19-5.50); Red Cell Distribution Width 13.6 % (11.5-14.5); White Blood Count 12.3 K/mcL (4.3-11.1)
[2022-01-03 03:10] LABS: BUN/Creatinine Ratio 37 (6-26); Blood Urea Nitrogen 15 mg/dL (6-20); Calcium 8.3 mg/dL (8.6-10.3); Carbon Dioxide 30 mEq/L (23-29); Chloride 101 mEq/L (98-107); Glucose 102 mg/dL (70-105); Magnesium 1.9 mg/dL (1.6-2.6); Osmolality,Calculated 283 (280-300); Potassium 3.5 mEq/L (3.5-5.1); Sodium 136 mEq/L (136-145)
[2022-01-03] MEDS: Morphine Sulfate 2 MG/ML SYRINGE IVP PRN ×4 (03:17→21:57)
[2022-01-03 03:30] LABS: Anisocytosis 1+ (Not Present); Polychromasia 1+ (Not Present)
[2022-01-03 03:31] LABS: Eosinophils # 0.5 K/mcL (0.0-0.6); Lymphocytes # 1.7 K/mcL (0.6-4.6); Monocytes # 0.5 K/mcL (0.0-1.3)
[2022-01-03 03:32] LABS: Reactive Lymphocytes Present (Not Present)
[2022-01-03] MEDS: 3% Sodium Chloride Inhalation 4 ML VIAL.NEB IH SCH ×4 (04:11→19:57)
[2022-01-03] MEDS: *HR* Enoxaparin 40 MG/0.4 ML SYRINGE SQ SCH (06:31)
[2022-01-03] MEDS: Insulin LISPRO 300 UNITS/3 ML VIAL SUBQ SCH ×4 (07:51→19:58)
[2022-01-03] MEDS: Finasteride 5 MG TABLET PO SCH (08:16)
[2022-01-03] MEDS: Furosemide 40 MG TABLET PO SCH ×2 (08:17→17:52)
[2022-01-03] MEDS: Aspirin Enteric Coated 81 MG Tablet PO SCH (08:17)
[2022-01-03] MEDS: amLODIPine 5 MG TABLET PO SCH (08:17)
[2022-01-03 16:26] LABS: 7-aminoclonazepam Conf <5 ng/mL; Alpha-hydroxyalprazolam Conf <5 ng/mL; Alprazolam Confirmation <5 ng/mL; Chlordiazepoxide Conf <20 ng/mL; Clonazepam Conf <5 ng/mL; Lorazepam Confirmation <20 ng/mL; Nordiazepam Confirmation <20 ng/mL; Oxazepam Confirmation <20 ng/mL; Temazepam Confirmation <20 ng/mL
[2022-01-03] MEDS: Melatonin 3 MG TABLET PO PRN (19:42)
[2022-01-04] MEDS: Ipratropium/Albuterol Neb 3 ML IH SCH ×6 (00:10→20:03)
[2022-01-04] MEDS: *HR* OxyCODONE/APAP 5/325 TABLET PO PRN ×2 (00:28→05:08)
[2022-01-04] MEDS ORDERED: *HR* Labetalol 20 MG/4 ML SYRINGE IVP ONE (01:46)
[2022-01-04] MEDS ORDERED: *HR* Metoprolol 5 MG/5 ML VIAL IVP ONE (02:11)
[2022-01-04] MEDS: 3% Sodium Chloride Inhalation 4 ML VIAL.NEB IH SCH ×4 (02:50→20:04)
[2022-01-04 03:14] LABS: Basophils # 0.1 K/mcL (0.0-0.2); Basophils % 0.5 %; Eosinophils # 0.2 K/mcL (0.0-0.6); Eosinophils % 1.6 %; Hemoglobin 7.7 g/dL (12.9-16.9); Lymphocytes # 1.9 K/mcL (0.6-4.6); Lymphocytes % 14.9 %; Mean Corpuscular HGB Conc 32.1 g/dL (31.6-35.5); Mean Corpuscular Hemoglobin 31.2 pg (28.0-33.3); Mean Corpuscular Volume 97.2 fL (83.0-100.0); Mean Platelet Volume 9.9 fL (9.4-12.4); Monocytes # 0.8 K/mcL (0.0-1.3); Monocytes % 6.3 %; Neutrophils # 9.2 K/mcL (1.6-8.9); Nucleated Red Blood Cells 1.7 /100 WBC (0); Platelet Count 257 K/mcL (140-400); Red Blood Count 2.47 M/mcL (4.19-5.50); Red Cell Distribution Width 13.7 % (11.5-14.5); Segmented Neutrophils % 72.7 %; White Blood Count 12.7 K/mcL (4.3-11.1)
[2022-01-04 03:31] LABS: BUN/Creatinine Ratio 30 (6-26); Blood Urea Nitrogen 12 mg/dL (6-20); Calcium 8.5 mg/dL (8.6-10.3); Carbon Dioxide 29 mEq/L (23-29); Chloride 101 mEq/L (98-107); Glucose 112 mg/dL (70-105); Magnesium 1.9 mg/dL (1.6-2.6); Osmolality,Calculated 281 (280-300); Potassium 3.6 mEq/L (3.5-5.1); Sodium 135 mEq/L (136-145)
[2022-01-04] MEDS ORDERED: Iopamidol - 370 500 ML MLS IVP ONE ×2 (03:55→03:56)
[2022-01-04] MEDS ORDERED: *HR* Metoprolol 5 MG/5 ML VIAL IVP STA (04:14)
[2022-01-04] MEDS: *HR* Enoxaparin 40 MG/0.4 ML SYRINGE SQ SCH (05:08)
[2022-01-04] MEDS ORDERED: Morphine Sulfate 2 MG/ML SYRINGE IVP ONE (05:38)
[2022-01-04 07:16] LABS: Alpha-hydroxymidazolam Conf <20 ng/mL; Diazepam Confirmation <5 ng/mL; Midazolam Confirmation 26 ng/mL
[2022-01-04] MEDS ORDERED: *HR* HYDROmorphone (PF) 1 MG/ML SYRINGE IVP PRN (08:09)
[2022-01-04] MEDS: Insulin LISPRO 300 UNITS/3 ML VIAL SUBQ SCH ×4 (08:46→19:49)
[2022-01-04] MEDS: Morphine Sulfate 2 MG/ML SYRINGE IVP PRN (08:46)
[2022-01-04] MEDS: Furosemide 40 MG TABLET PO SCH ×2 (08:47→17:10)
[2022-01-04] MEDS: Aspirin Enteric Coated 81 MG Tablet PO SCH (08:47)
[2022-01-04] MEDS: Finasteride 5 MG TABLET PO SCH (08:47)
[2022-01-04] MEDS: amLODIPine 5 MG TABLET PO SCH (08:48)
[2022-01-04] MEDS: *HR* Metoprolol 5 MG/5 ML VIAL IVP PRN (09:29)
[2022-01-04] MEDS ORDERED: Amiodarone Premix 150 MG/100 ML BAG IVPB ONE (09:30)
[2022-01-04] MEDS ORDERED: Amiodarone Premix 360 MG/200 ML BAG IVC SCH (10:30)
[2022-01-04] MEDS ORDERED: Amiodarone Premix 360 MG/200 ML BAG IVC ONE (10:55)
[2022-01-04] MEDS: *HR* HYDROmorphone (PF) 1 MG/ML SYRINGE IVP PRN ×5 (12:00→22:18)
[2022-01-04] MEDS: Amiodarone Premix 360 MG/200 ML BAG IVC SCH (17:10)
[2022-01-04] MEDS: Melatonin 3 MG TABLET PO PRN (19:49)
[2022-01-04] MEDS: Metoprolol 100 MG TABLET PO SCH (19:49)
[2022-01-05] MEDS: Ipratropium/Albuterol Neb 3 ML IH SCH ×7 (00:20→23:26)
[2022-01-05] MEDS: *HR* HYDROmorphone (PF) 1 MG/ML SYRINGE IVP PRN ×8 (00:45→22:25)
[2022-01-05 01:14] LABS: Basophils % 0.3 %; Eosinophils # 0.1 K/mcL (0.0-0.6); Hematocrit 23.8 % (37.5-50.1); Hemoglobin 7.4 g/dL (12.9-16.9); Immature Granulocytes % 1.9 % (0-4); Lymphocytes # 2.3 K/mcL (0.6-4.6); Lymphocytes % 16.3 %; Mean Corpuscular HGB Conc 31.1 g/dL (31.6-35.5); Mean Corpuscular Volume 96.4 fL (83.0-100.0); Monocytes # 0.9 K/mcL (0.0-1.3); Monocytes % 6.6 %; Neutrophils # 10.5 K/mcL (1.6-8.9); Nucleated Red Blood Cells 1.4 /100 WBC (0); Platelet Count 219 K/mcL (140-400); Red Blood Count 2.47 M/mcL (4.19-5.50); Red Cell Distribution Width 13.9 % (11.5-14.5); Segmented Neutrophils % 73.9 %; White Blood Count 14.2 K/mcL (4.3-11.1)
[2022-01-05 01:34] LABS: BUN/Creatinine Ratio 29 (6-26); Blood Urea Nitrogen 14 mg/dL (6-20); Calcium 8.4 mg/dL (8.6-10.3); Carbon Dioxide 28 mEq/L (23-29); Chloride 99 mEq/L (98-107); Glucose 114 mg/dL (70-105); Magnesium 1.9 mg/dL (1.6-2.6); Osmolality,Calculated 277 (280-300); Potassium 3.8 mEq/L (3.5-5.1); Sodium 133 mEq/L (136-145)
[2022-01-05] MEDS: Amiodarone Premix 360 MG/200 ML BAG IVC SCH (04:07)
[2022-01-05] MEDS: 3% Sodium Chloride Inhalation 4 ML VIAL.NEB IH SCH ×4 (04:08→20:23)
[2022-01-05] MEDS: *HR* Enoxaparin 40 MG/0.4 ML SYRINGE SQ SCH (06:03)
[2022-01-05] MEDS: Metoprolol 100 MG TABLET PO SCH ×2 (07:35→20:05)
[2022-01-05] MEDS: Finasteride 5 MG TABLET PO SCH (07:36)
[2022-01-05] MEDS: Aspirin Enteric Coated 81 MG Tablet PO SCH (07:37)
[2022-01-05] MEDS: Furosemide 40 MG TABLET PO SCH (07:37)
[2022-01-05] MEDS: amLODIPine 5 MG TABLET PO SCH (07:37)
[2022-01-05] MEDS: Insulin LISPRO 300 UNITS/3 ML VIAL SUBQ SCH ×4 (07:39→20:06)
[2022-01-05] MEDS: *HR* Metoprolol 5 MG/5 ML VIAL IVP PRN (10:18)
[2022-01-05] MEDS ORDERED: Albumin 25% 25gram/100mL 25 GM/100 ML IV.SOLN IVC SCH (10:45)
[2022-01-05] MEDS: Sennosides/Docusate Sodium TABLET PO SCH ×2 (10:59→20:04)
[2022-01-05] MEDS ORDERED: Furosemide 40 MG/4 ML VIAL IVP ONE (11:00)
[2022-01-05 12:42] LABS: INR 1.7
[2022-01-05 12:52] LABS: Albumin 3.2 g/dL (3.5-5.7); Albumin/Globulin Ratio 1.1 (1.1-2.2); Bilirubin,Indirect 0.5 mg/dL (0.0-1.0); Bilirubin,Total 0.5 mg/dL (0.3-1.0); Globulin 2.8 g/dL (2.4-3.5)
[2022-01-05] MEDS: DilTIAZem 50 MG/50 ML IV.SOLN IVC SCH ×3 (15:38→23:13)
[2022-01-05] MEDS: Heparin 25,000UNIT/250ML 1/2NS 25,000 UNIT/250 ML IV.SOLN IVC SCH (16:40)
[2022-01-05] MEDS: *HR* Amiodarone 200 MG TABLET PO SCH (17:01)
[2022-01-05] MEDS ORDERED: 0.9 % Sodium Chloride 250 ML ONE (17:35)
[2022-01-05] MEDS ORDERED: Bumetanide 1 MG/4 ML VIAL IVP ONE (18:00)
[2022-01-05] MEDS: *HR* OxyCODONE/APAP 5/325 TABLET PO PRN (20:10)
[2022-01-06] MEDS: Morphine Sulfate 2 MG/ML SYRINGE IVP PRN ×3 (00:39→21:14)
[2022-01-06] MEDS ORDERED: 0.9 % Sodium Chloride 250 ML ONE (01:02)
[2022-01-06] MEDS: Ipratropium/Albuterol Neb 3 ML IH SCH ×6 (04:00→23:58)
[2022-01-06] MEDS: 3% Sodium Chloride Inhalation 4 ML VIAL.NEB IH SCH ×4 (04:00→20:33)
[2022-01-06 05:27] LABS: Basophils # 0.1 K/mcL (0.0-0.2); Basophils % 0.3 %; Eosinophils # 0.1 K/mcL (0.0-0.6); Eosinophils % 0.5 %; Hematocrit 27.9 % (37.5-50.1); Immature Granulocytes % 1.4 % (0-4); Lymphocytes # 1.7 K/mcL (0.6-4.6); Lymphocytes % 9.6 %; Mean Corpuscular HGB Conc 32.3 g/dL (31.6-35.5); Mean Corpuscular Hemoglobin 29.7 pg (28.0-33.3); Mean Corpuscular Volume 92.1 fL (83.0-100.0); Mean Platelet Volume 9.8 fL (9.4-12.4); Monocytes % 5.8 %; Neutrophils # 14.3 K/mcL (1.6-8.9); Nucleated Red Blood Cells 0.9 /100 WBC (0); Platelet Count 110 K/mcL (140-400); Red Blood Count 3.03 M/mcL (4.19-5.50); Red Cell Distribution Width 15.8 % (11.5-14.5); Segmented Neutrophils % 82.4 %; White Blood Count 17.3 K/mcL (4.3-11.1)
[2022-01-06 05:47] LABS: BUN/Creatinine Ratio 31 (6-26); Blood Urea Nitrogen 16 mg/dL (6-20); Calcium 8.4 mg/dL (8.6-10.3); Carbon Dioxide 27 mEq/L (23-29); Chloride 98 mEq/L (98-107); Glucose 98 mg/dL (70-105); Osmolality,Calculated 277 (280-300); Potassium 3.8 mEq/L (3.5-5.1); Sodium 133 mEq/L (136-145)
[2022-01-06] MEDS: Bumetanide 1 MG/4 ML VIAL IVP SCH ×2 (06:48→19:38)
[2022-01-06] MEDS: *HR* Enoxaparin 40 MG/0.4 ML SYRINGE SQ SCH (06:48)
[2022-01-06] MEDS: DilTIAZem 50 MG/50 ML IV.SOLN IVC SCH ×2 (06:50→12:06)
[2022-01-06] MEDS: *HR* OxyCODONE/APAP 5/325 TABLET PO PRN ×3 (08:47→17:55)
[2022-01-06] MEDS: Sennosides/Docusate Sodium TABLET PO SCH ×2 (08:48→19:38)
[2022-01-06] MEDS: Metoprolol 100 MG TABLET PO SCH ×2 (08:48→19:38)
[2022-01-06] MEDS: *HR* Amiodarone 200 MG TABLET PO SCH ×2 (08:48→19:38)
[2022-01-06] MEDS: Finasteride 5 MG TABLET PO SCH (08:48)
[2022-01-06] MEDS: Aspirin Enteric Coated 81 MG Tablet PO SCH (08:48)
[2022-01-06] MEDS: amLODIPine 5 MG TABLET PO SCH (08:49)
[2022-01-06] MEDS: Insulin LISPRO 300 UNITS/3 ML VIAL SUBQ SCH ×4 (08:49→20:53)
[2022-01-06] MEDS ORDERED: Bumetanide 1 MG/4 ML VIAL IVP SCH (09:00)
[2022-01-06] MEDS: *HR* HYDROmorphone (PF) 1 MG/ML SYRINGE IVP PRN ×3 (11:47→22:36)
[2022-01-06] MEDS: Heparin 25,000UNIT/250ML 1/2NS 25,000 UNIT/250 ML IV.SOLN IVC SCH (17:57)
[2022-01-07] MEDS: *HR* HYDROmorphone (PF) 1 MG/ML SYRINGE IVP PRN ×7 (01:00→18:34)
[2022-01-07 02:04] LABS: Basophils % 0.3 %; Immature Granulocytes % 1.9 % (0-4); Nucleated Red Blood Cells 0.7 /100 WBC (0)
[2022-01-07 02:05] LABS: Eosinophils # 0.1 K/mcL (0.0-0.6); Eosinophils % 0.9 %; Hematocrit 26.4 % (37.5-50.1); Hemoglobin 8.4 g/dL (12.9-16.9); Lymphocytes % 13.2 %; Mean Corpuscular HGB Conc 31.8 g/dL (31.6-35.5); Mean Corpuscular Hemoglobin 29.7 pg (28.0-33.3); Mean Corpuscular Volume 93.3 fL (83.0-100.0); Mean Platelet Volume 9.9 fL (9.4-12.4); Monocytes % 6.6 %; Neutrophils # 11.4 K/mcL (1.6-8.9); Red Blood Count 2.83 M/mcL (4.19-5.50); Red Cell Distribution Width 15.7 % (11.5-14.5); Segmented Neutrophils % 77.1 %; White Blood Count 14.8 K/mcL (4.3-11.1)
[2022-01-07 02:13] LABS: Platelet Count 90 K/mcL (140-400)
[2022-01-07 02:21] LABS: BUN/Creatinine Ratio 35 (6-26); Blood Urea Nitrogen 17 mg/dL (6-20); Calcium 8.2 mg/dL (8.6-10.3); Carbon Dioxide 29 mEq/L (23-29); Chloride 98 mEq/L (98-107); Glucose 100 mg/dL (70-105); Osmolality,Calculated 278 (280-300); Potassium 3.6 mEq/L (3.5-5.1); Sodium 133 mEq/L (136-145)
[2022-01-07] MEDS: 3% Sodium Chloride Inhalation 4 ML VIAL.NEB IH SCH ×4 (03:52→20:04)
[2022-01-07] MEDS: Ipratropium/Albuterol Neb 3 ML IH SCH ×6 (03:53→23:26)
[2022-01-07] MEDS: Metoprolol 100 MG TABLET PO SCH (08:21)
[2022-01-07] MEDS: Aspirin Enteric Coated 81 MG Tablet PO SCH (08:21)
[2022-01-07] MEDS: amLODIPine 5 MG TABLET PO SCH (08:21)
[2022-01-07] MEDS: *HR* Amiodarone 200 MG TABLET PO SCH ×2 (08:22→20:25)
[2022-01-07] MEDS: Bumetanide 1 MG/4 ML VIAL IVP SCH ×2 (08:22→20:24)
[2022-01-07] MEDS: Sennosides/Docusate Sodium TABLET PO SCH ×2 (08:22→20:25)
[2022-01-07] MEDS: Finasteride 5 MG TABLET PO SCH (08:23)
[2022-01-07] MEDS: Insulin LISPRO 300 UNITS/3 ML VIAL SUBQ SCH ×4 (08:23→19:49)
[2022-01-07] MEDS: Spironolactone 12.5 MG TABLET PO SCH (12:20)
[2022-01-07] MEDS: *HR* OxyCODONE/APAP 5/325 TABLET PO PRN ×2 (17:15→23:35)
[2022-01-07] MEDS: Heparin 25,000UNIT/250ML 1/2NS 25,000 UNIT/250 ML IV.SOLN IVC SCH (20:23)
[2022-01-07] MEDS: Morphine Sulfate 2 MG/ML SYRINGE IVP PRN (20:23)
[2022-01-07] MEDS: Metoprolol XL (24 HR) Succ 50 MG TAB.ER.24H PO SCH (20:24)
[2022-01-08] MEDS: *HR* HYDROmorphone (PF) 1 MG/ML SYRINGE IVP PRN ×3 (02:52→20:51)
[2022-01-08] MEDS: Ipratropium/Albuterol Neb 3 ML IH SCH ×5 (04:30→20:16)
[2022-01-08] MEDS: 3% Sodium Chloride Inhalation 4 ML VIAL.NEB IH SCH ×3 (04:30→16:02)
[2022-01-08 04:46] LABS: Basophils % 0.4 %; Eosinophils % 0.8 %; Hemoglobin 8.4 g/dL (12.9-16.9); Monocytes % 6.6 %
[2022-01-08 04:48] LABS: Basophils # 0.1 K/mcL (0.0-0.2); Eosinophils # 0.1 K/mcL (0.0-0.6); Immature Granulocytes % 1.4 % (0-4); Immature Platelets 7.3 % (1.1-6.1); Lymphocytes # 1.7 K/mcL (0.6-4.6); Lymphocytes % 11.8 %; Mean Corpuscular HGB Conc 31.1 g/dL (31.6-35.5); Mean Corpuscular Hemoglobin 29.5 pg (28.0-33.3); Mean Corpuscular Volume 94.7 fL (83.0-100.0); Mean Platelet Volume 11.1 fL (9.4-12.4); Monocytes # 0.9 K/mcL (0.0-1.3); Nucleated Red Blood Cells 0.1 /100 WBC (0); Red Blood Count 2.85 M/mcL (4.19-5.50); Red Cell Distribution Width 15.3 % (11.5-14.5); White Blood Count 14.1 K/mcL (4.3-11.1)
[2022-01-08 04:49] LABS: Neutrophils # 11.1 K/mcL (1.6-8.9); Platelet Count 75 K/mcL (140-400)
[2022-01-08 05:01] LABS: BUN/Creatinine Ratio 29 (6-26); Blood Urea Nitrogen 14 mg/dL (6-20); Calcium 8.4 mg/dL (8.6-10.3); Carbon Dioxide 31 mEq/L (23-29); Chloride 100 mEq/L (98-107); Glucose 97 mg/dL (70-105); Magnesium 2.1 mg/dL (1.6-2.6); Osmolality,Calculated 282 (280-300); Potassium 3.9 mEq/L (3.5-5.1); Sodium 136 mEq/L (136-145)
[2022-01-08] MEDS: *HR* OxyCODONE/APAP 5/325 TABLET PO PRN ×4 (05:51→19:36)
[2022-01-08] MEDS: Insulin LISPRO 300 UNITS/3 ML VIAL SUBQ SCH ×4 (08:33→19:39)
[2022-01-08] MEDS: Sennosides/Docusate Sodium TABLET PO SCH ×2 (08:34→20:50)
[2022-01-08] MEDS: *HR* Amiodarone 200 MG TABLET PO SCH ×2 (08:34→20:50)
[2022-01-08] MEDS: Bumetanide 1 MG/4 ML VIAL IVP SCH ×2 (08:34→20:50)
[2022-01-08] MEDS: Spironolactone 12.5 MG TABLET PO SCH (08:34)
[2022-01-08] MEDS: amLODIPine 5 MG TABLET PO SCH (08:34)
[2022-01-08] MEDS: Finasteride 5 MG TABLET PO SCH (08:35)
[2022-01-08] MEDS: Aspirin Enteric Coated 81 MG Tablet PO SCH (08:35)
[2022-01-08] MEDS: Metoprolol XL (24 HR) Succ 50 MG TAB.ER.24H PO SCH ×2 (08:36→20:49)
[2022-01-08] MEDS: Morphine Sulfate 2 MG/ML SYRINGE IVP PRN ×2 (08:47→23:32)
[2022-01-08 14:14] LABS: INR 1.5; Prothrombin Time 17.2 Seconds (9.4-12.1)
[2022-01-08] MEDS: polyethylene glycoL 3350 17 GM POWD.PACK PO SCH (16:23)
[2022-01-08] MEDS ORDERED: *HR* Warfarin 2.5 MG TABLET PO ONE (18:00)
[2022-01-08] MEDS: Warfarin perPT PO SCH (18:18)
[2022-01-08] MEDS: Heparin 25,000UNIT/250ML 1/2NS 25,000 UNIT/250 ML IV.SOLN IVC SCH (20:53)
[2022-01-09] MEDS: 3% Sodium Chloride Inhalation 4 ML VIAL.NEB IH SCH ×5 (00:15→20:23)
[2022-01-09] MEDS: Ipratropium/Albuterol Neb 3 ML IH SCH ×6 (00:15→20:22)
[2022-01-09] MEDS: *HR* OxyCODONE/APAP 5/325 TABLET PO PRN ×5 (03:44→22:05)
[2022-01-09 06:45] LABS: Basophils % 0.3 %; Hemoglobin 8.5 g/dL (12.9-16.9); Mean Corpuscular Volume 94.8 fL (83.0-100.0)
[2022-01-09 06:47] LABS: Eosinophils # 0.1 K/mcL (0.0-0.6); Eosinophils % 0.6 %; Hematocrit 27.4 % (37.5-50.1); Immature Platelets 6.8 % (1.1-6.1); Lymphocytes # 1.3 K/mcL (0.6-4.6); Lymphocytes % 8.9 %; Mean Corpuscular Hemoglobin 29.4 pg (28.0-33.3); Mean Platelet Volume 10.5 fL (9.4-12.4); Monocytes # 0.9 K/mcL (0.0-1.3); Monocytes % 6.2 %; Neutrophils # 11.9 K/mcL (1.6-8.9); Nucleated Red Blood Cells 0.1 /100 WBC (0); Platelet Count 82 K/mcL (140-400); Red Blood Count 2.89 M/mcL (4.19-5.50); Red Cell Distribution Width 15.1 % (11.5-14.5); White Blood Count 14.3 K/mcL (4.3-11.1)
[2022-01-09 06:52] LABS: INR 1.6; Prothrombin Time 18.1 Seconds (9.4-12.1)
[2022-01-09 07:04] LABS: BUN/Creatinine Ratio 29 (6-26); Blood Urea Nitrogen 14 mg/dL (6-20); Calcium 8.3 mg/dL (8.6-10.3); Carbon Dioxide 30 mEq/L (23-29); Chloride 100 mEq/L (98-107); Glucose 99 mg/dL (70-105); Osmolality,Calculated 281 (280-300); Potassium 4.1 mEq/L (3.5-5.1); Sodium 135 mEq/L (136-145)
[2022-01-09] MEDS: Insulin LISPRO 300 UNITS/3 ML VIAL SUBQ SCH ×4 (07:50→21:16)
[2022-01-09] MEDS: Bumetanide 1 MG/4 ML VIAL IVP SCH (09:03)
[2022-01-09] MEDS: Spironolactone 12.5 MG TABLET PO SCH (09:04)
[2022-01-09] MEDS: *HR* Amiodarone 200 MG TABLET PO SCH ×2 (09:04→21:15)
[2022-01-09] MEDS: Finasteride 5 MG TABLET PO SCH (09:04)
[2022-01-09] MEDS: Sennosides/Docusate Sodium TABLET PO SCH ×2 (09:04→21:16)
[2022-01-09] MEDS: Metoprolol XL (24 HR) Succ 50 MG TAB.ER.24H PO SCH ×2 (09:05→21:15)
[2022-01-09] MEDS: polyethylene glycoL 3350 17 GM POWD.PACK PO SCH (09:06)
[2022-01-09] MEDS: amLODIPine 5 MG TABLET PO SCH (09:06)
[2022-01-09] MEDS: Aspirin Enteric Coated 81 MG Tablet PO SCH (09:06)
[2022-01-09] MEDS: Furosemide 40 MG TABLET PO SCH (17:56)
[2022-01-09] MEDS ORDERED: *HR* Warfarin 3 MG TABLET PO ONE (18:00)
[2022-01-09] MEDS: Warfarin perPT PO SCH (18:02)
[2022-01-10] MEDS: Ipratropium/Albuterol Neb 3 ML IH SCH ×5 (00:02→15:45)
[2022-01-10] MEDS: *HR* OxyCODONE/APAP 5/325 TABLET PO PRN ×4 (02:09→14:19)
[2022-01-10 03:25] LABS: INR 1.6; Prothrombin Time 17.7 Seconds (9.4-12.1)
[2022-01-10 03:35] LABS: BUN/Creatinine Ratio 25 (6-26); Blood Urea Nitrogen 15 mg/dL (6-20); Calcium 8.5 mg/dL (8.6-10.3); Carbon Dioxide 29 mEq/L (23-29); Chloride 100 mEq/L (98-107); Glucose 94 mg/dL (70-105); Osmolality,Calculated 283 (280-300); Potassium 4.2 mEq/L (3.5-5.1); Sodium 136 mEq/L (136-145)
[2022-01-10] MEDS: 3% Sodium Chloride Inhalation 4 ML VIAL.NEB IH SCH ×3 (04:18→15:45)
[2022-01-10] MEDS: Sennosides/Docusate Sodium TABLET PO SCH (08:53)
[2022-01-10] MEDS: Aspirin Enteric Coated 81 MG Tablet PO SCH (08:53)
[2022-01-10] MEDS: Metoprolol XL (24 HR) Succ 50 MG TAB.ER.24H PO SCH (08:54)
[2022-01-10] MEDS: Spironolactone 12.5 MG TABLET PO SCH (08:54)
[2022-01-10] MEDS: amLODIPine 5 MG TABLET PO SCH (08:55)
[2022-01-10] MEDS: Finasteride 5 MG TABLET PO SCH (08:55)
[2022-01-10] MEDS: *HR* Amiodarone 200 MG TABLET PO SCH (08:55)
[2022-01-10] MEDS: Furosemide 40 MG TABLET PO SCH (08:55)
[2022-01-10] MEDS: polyethylene glycoL 3350 17 GM POWD.PACK PO SCH (08:56)
[2022-01-10] MEDS: Insulin LISPRO 300 UNITS/3 ML VIAL SUBQ SCH ×2 (08:56→12:18)
[2022-01-10 11:16] VITALS: O2SAT 92
[2022-01-10 11:35] VITALS: BP 125/52; PULSE 74; TEMP 98.9
[2022-01-10 12:24] LABS: Adenovirus Not Detected (Not Detect); Bordetella Pertussis Not Detected (Not Detect); Chlamydophila pneumoniae Not Detected (Not Detect); Coronavirus 229E Not Detected (Not Detect); Coronavirus HKU1 Not Detected (Not Detect); Coronavirus NL63 Not Detected (Not Detect); Coronavirus OC43 Not Detected (Not Detect); Human Metapneumovirus Not Detected (Not Detect); Human Rhinovirus/Enterovirus Not Detected (Not Detect); Influenza A Subtype 2009 H1 Not Detected (Not Detect); Influenza B Not Detected (Not Detect); Mycoplasma pneumoniae Not Detected (Not Detect); Parainfluenza Virus 1 Not Detected (Not Detect); Parainfluenza Virus 2 Not Detected (Not Detect); Parainfluenza Virus 3 Not Detected (Not Detect); Parainfluenza Virus 4 Not Detected (Not Detect); Respiratory Syncytial Virus Not Detected (Not Detect); SARS-CoV-2 Not Detected (Not Detect)
[2022-01-10] MEDS ORDERED: *HR* Warfarin 4 MG TABLET PO ONE (18:00)
== END 2022-01-10 16:45 | DRG 219 ==
LOC: EMEROOARM 07:42 → ICNU 07:42 → SUATTDRO 14:28 → ICNU 15:36 → 2ANU 12-29 17:11 → 2NNU 01-01 13:18
PROVIDERS: ADMIT Thoracic Surgery (Cardiothoracic Vascular Surgery); ATTEND Internal Medicine